=== PATIENT | female | born 1990 ===

== ENCOUNTER 2017-04-17 13:08 | Outpatient (CLI) | payer OTHER ==
--- NOTE | 2017-04-17 16:32 | Diagnostic Imaging Report ---
Indication: 26-year-old female abdominal pain Technique: MRI of the abdomen was performed in a 1.5 Martha magnet. Pulse sequences obtained include coronal and axial T2 single shot fast spin echo breathhold and respiratory gated coronal T2 3-D M.R.C.P.; this data set was displayed in different projections or MIPs. In addition, multiple coronal oblique thin T2 weighted, fat saturated SE sequences obtained through the CBD. Comparison: None Findings: There is no biliary ductal dilatation within the liver. The CBD is also normal in caliber. There is no evidence of choledocholithiasis. There is apparent thickening of the wall the gallbladder but the gallbladder is not fully distended. Suspect patient is not n.p.o. Patient also refused to breath-hold and there is some artifact associated with the patient's bra which she refused to remove. No free fluid identified within the visualized part of the abdomen. There is no adrenal mass identified. Impression: Negative MRCP with limitations as discussed above. Contracted gallbladder. Correlate with n.p.o. status
== END 2017-04-17 15:08 | disposition home or self-care (01) ==
LOC: MRI 13:08
DX: R10.9 Unspecified abdominal pain (principal)
CPT/HCPCS: 74181